=== PATIENT | male | born 1955 | race Caucasian/White ===

== ENCOUNTER 2022-05-11 23:55 | Outpatient (REF) | payer MEDICARE, MEDICAID, SELFPAY ==
[2022-05-12 02:18] LABS: Abs Immature Grans 0.02 10^3/uL (0.0-0.06); Absolute Basophil Count 0.04 10^3/uL (0.0-0.2); Absolute Eosinophil Count 0.27 10^3/uL (0.0-0.7); Absolute Lymphocyte Count 0.95 10^3/uL (1.2-3.4); Absolute Monocyte Count 0.75 10^3/uL (0.1-0.8); Absolute Neutrophil Count 4.17 10^3/uL (1.2-6.7); Basophils % 0.6; Eosinophils % 4.4; HCT 51.7 % (40.0-50.0); HGB 14.9 g/dL (13.5-17.5); Immature Grans % 0.3; Lymphocytes % 15.3; MCH 28.3 pg (27.0-33.0); MCHC 28.8 % (32.0-36.0); MCV 98 fL (80-95); Monocytes % 12.1; Neutrophils % 67.3; Platelet Count 253 10^3/uL (130-400); RBC 5.26 10^6/uL (4.36-5.78); RDW 16.5 % (11.8-14.1)
[2022-05-12 02:51] LABS: ALT 20 U/L (16-63); AST 23 U/L (15-37); Albumin 3.1 g/dL (3.4-5.0); Alkaline Phosphatase 78 U/L (46-116); Anion Gap 5.6 mmol/L (3-11); BUN 22 mg/dL (7-18); Bilirubin, Total 0.4 mg/dL (0.2-1.0); CO2 33.4 mmol/L (21.0-32.0); CREATININE 1.3 mg/dL (0.70-1.30); Calcium 9.5 mg/dL (8.5-10.1); Chloride 106 mmol/L (98-107); Estimated GFR 60.59 (mL/min/1.73m2); Glucose 96 mg/dL (74-106); Potassium 4.2 mmol/L (3.5-5.1); Sodium 145 mmol/L (136-145); TSH (W/Ref FT4) 3.73 uIU/mL (0.36-3.74); Total Protein 7.1 g/dL (6.4-8.2); Vitamin B12 550 pg/mL (193-986)
[2022-05-12 02:53] LABS: Folate > 20.0 ng/mL (8.6-20.0)
[2022-05-12 19:56] LABS: FSH 4.8 mIU/mL (1.4-18.1)
== END 2022-05-11 23:56 | disposition home or self-care (01) ==
LOC: NCHCN 23:55
PROVIDERS: Visit Provider Family Medicine
DX: I10 Essential (primary) hypertension (principal); J44.9 Chronic obstructive pulmonary disease, unspecified; R41.3 Other amnesia; R91.1 Solitary pulmonary nodule; Z00.00 Encounter for general adult medical examination without abnormal findings
CPT/HCPCS: 80053; 82607; 82746; 83001; 84443; 85025

== ENCOUNTER → 2022-06-02 02:08 | Outpatient (CLI) | payer MEDICARE, MEDICAID, SELFPAY ==
--- NOTE | 2022-06-02 09:15 | DI.CT_ITS ---
Exam(s) CT CHEST WO EXAM: CT CHEST WO CLINICAL HISTORY: PULMONARY NODULE, R91.1. TECHNIQUE: Imaging protocol: Axial computed tomography images were obtained and coronal and sagittal reformatted images were created and reviewed. COMPARISON: CT CT ANGIO CHEST PE PROTOCOL from 02/09/2022 FINDINGS: The examination is limited due to patient motion artifact. Tracheobronchial tree: Patent where visualized. The right lower lobe mucous plugging has resolved. T he airways are clear. Pulmonary parenchyma: There is a stable 1.2 x 1 cm nodule in the right mid lung. No new pulmonary no dules are seen. The scarring in the right lung base has spin stable. No focal consolidating infiltr ates are seen. Marked centrilobular emphysema is present. Mediastinum and Olivia: No dominant adenopathy or fluid collection. The esophagus is unremarkable. Thyroid gland: Unremarkable. Pleura: No effusion or pneumothorax. Heart: The heart is not dilated. Coronary artery calcifications are present. No pericardial effusion. Aorta: Thoracic aorta non-dilated. Atherosclerosis is present. Upper abdomen: Layering debris is seen within the gallbladder which may represent gallstones. Lymph nodes: Within normal limits. Soft tissues: There is a 1.5 x 5.8 cm lipoma along the left lateral chest wall. Bones:Within normal limits for the patient's age. IMPRESSION: 1. Stable pulmonary nodule in the right mid lung. 2. Resolution of the right lower lobe mucous plugging. 3. Marked centrilobular emphysema. RADIATION DOSE DELIVERED: Total DLP Total DLP DATA REPOSITORY: All CT scans at this facility are submitted to the National Radiology Data Registry (NRDR) Dose Index Registry (DIR) with the [employer] (A[employer]). RADIATION OPTIMIZATION: All CT scans at this facility use at least one of these dose optimization te chniques: automated exposure control; mA and/or kV adjustment per patient size (includes targeted exa ms where dose is matched to clinical indication); or iterative reconstruction.
== END ==
PROVIDERS: PCP Family Medicine; Visit Provider Family Medicine
DX: R91.1 Solitary pulmonary nodule (principal); J43.2 Centrilobular emphysema
CPT/HCPCS: 71250

== ENCOUNTER → 2022-07-30 10:28 | Outpatient (BNVA) | payer MEDICARE, MEDICAID, SELFPAY | PROVIDERS: PCP Family Medicine; Referring Provider Family Medicine; Visit Provider Psychiatry & Neurology Neurology | DX: R27.0 Ataxia, unspecified (principal); K74.60 Unspecified cirrhosis of liver; R63.4 Abnormal weight loss; R41.3 Other amnesia; R29.6 Repeated falls | CPT/HCPCS: 99205 ==

== ENCOUNTER 2022-08-13 01:55 | Outpatient (CLI) | payer MEDICARE, MEDICAID, SELFPAY ==
--- NOTE | 2022-08-13 07:15 | DI.CT_ITS ---
Exam(s) CT HEAD WO EXAM: CT HEAD WO CLINICAL HISTORY: new ataxia,r27.0. TECHNIQUE: Imaging Protocol: Axial computed tomography images with coronal and sagittal reformatted images were created and reviewed COMPARISON: No exams were available for comparison FINDINGS: Ventricles and Extra axial spaces: Normal in size and morphology for the patient's age. Hemorrhage: None. Cerebral parenchyma: Normal. Midline shift: None. Brainstem/Cerebellum: Normal. Calvarium: Normal. Visualized Paranasal sinuses/Mastoids: Clear. Soft Tissues: Unremarkable. IMPRESSION: No acute intracranial process. RADIATION DOSE DELIVERED: 722.31mGy.cm Total DLP DATA REPOSITORY: All CT scans at this facility are submitted to the National Radiology Data Registry (NRDR) Dose Index Registry (DIR) with the [employer] (ACR). RADIATION OPTIMIZATION: All CT scans at this facility use at least one of these dose optimization te chniques: automated exposure control; mA and/or kV adjustment per patient size (includes targeted exa ms where dose is matched to clinical indication); or iterative reconstruction.
== END 2022-08-13 02:15 ==
LOC: DI 01:55
PROVIDERS: PCP Family Medicine; Visit Provider Psychiatry & Neurology Neurology
DX: R27.0 Ataxia, unspecified (principal)
CPT/HCPCS: 36415; 82390; 82525; 85652; 70450; 84165; 84425; 84446; 86038

== ENCOUNTER 2022-08-13 04:14 | Outpatient (CLI) | payer MEDICARE, MEDICAID, SELFPAY ==
[2022-08-13 09:50] LABS: ESR 3 mm/hr (0-20)
[2022-08-14 12:57] LABS: Albumin 58.7 % (55.8-66.1); Albumin g/dL 3.6 g/dL (3.6-5.2); Total Protein 6.2 g/dL (6.3-8.2)
[2022-08-14 14:16] LABS: ANA Interpretation Negative (Negative)
[2022-08-14 21:51] LABS: Copper, Serum 136 mcg/dL (73-129)
[2022-08-15 12:07] LABS: Vitamin E, Serum 18.7 mg/L (5.5 - 17.0)
[2022-08-16 00:59] LABS: Thiamine (Vitamin B1), WB 242 nmol/L (70-180)
== END 2022-08-13 04:15 | disposition home or self-care (01) ==
LOC: LBO 04:20
PROVIDERS: PCP Family Medicine; Visit Provider Psychiatry & Neurology Neurology
DX: K74.60 Unspecified cirrhosis of liver (principal); R27.0 Ataxia, unspecified; R63.4 Abnormal weight loss; G62.9 Polyneuropathy, unspecified
CPT/HCPCS: 36415; 82390; 82525; 85652; 84165; 84425; 84446; 86038

== ENCOUNTER 2022-09-03 10:21 | Outpatient (REF) | payer MEDICARE, MEDICAID, SELFPAY ==
[2022-09-07 10:43] LABS: Copper 24 Hr, U 9 mcg/24 h (9-71); Urine Volume 600 mL
== END 2022-09-03 10:22 | disposition home or self-care (01) ==
LOC: LBN 10:21
PROVIDERS: PCP Family Medicine; Visit Provider Psychiatry & Neurology Neurology
DX: K74.60 Unspecified cirrhosis of liver (principal)
CPT/HCPCS: 81050; 82525

== ENCOUNTER 2022-09-24 01:17 | Outpatient (CLI) | payer MEDICARE, MEDICAID, SELFPAY ==
--- NOTE | 2022-09-24 06:30 | DI.MRI_ITS ---
Exam(s) MR BRAIN WO EXAM: MR BRAIN WO CLINICAL HISTORY: ataxia,frequent falls,r29.6,r27.0 TECHNIQUE: Multiplanar multisequence MRI of the brain was performed. COMPARISON: CT CT HEAD WO from 08/13/2022 FINDINGS: The exam is somewhat limited by motion. Patient had difficult time completing the exam. VENTRICLES AND EXTRA AXIAL SPACES: Normal in size and morphology for the patient's age. MIDLINE SHIFT: None. CEREBRAL PARENCHYMA: No focus of restricted diffusion to suggest acute infarct. No space-occupying le brandon identified. Multiple patchy densities bilaterally in the white matter of the cerebral hemisphe res likely reflecting microvascular changes. HEMORRHAGE: None. BRAINSTEM/CEREBELLUM: Normal. VISUALIZED PARANASAL SINUSES/MASTOIDS:Clear. [place]: Normal flow void. PITUITARY GLAND: Unremarkable. ORBITS: Unremarkable. IMPRESSION: Microvascular changes in the white matter. No acute abnormality. DATA REPOSITORY:
== END 2022-09-24 01:37 ==
LOC: DI 01:17
PROVIDERS: PCP Family Medicine; Visit Provider Psychiatry & Neurology Neurology
DX: R29.6 Repeated falls (principal); R27.0 Ataxia, unspecified; I67.89 Other cerebrovascular disease
CPT/HCPCS: 70551

== ENCOUNTER → 2022-10-01 11:33 | Outpatient (BNVA) | payer MEDICARE, MEDICAID, SELFPAY | PROVIDERS: PCP Family Medicine; Referring Provider Family Medicine; Visit Provider Surgery | DX: I73.9 Peripheral vascular disease, unspecified (principal) | CPT/HCPCS: 93922 ==

== ENCOUNTER → 2023-01-07 14:20 | Outpatient (BNVA) | payer MEDICARE, MEDICAID, SELFPAY | PROVIDERS: PCP Family Medicine; Referring Provider Family Medicine; Visit Provider Psychiatry & Neurology Neurology | DX: R27.0 Ataxia, unspecified (principal); R63.4 Abnormal weight loss; R41.3 Other amnesia; R29.6 Repeated falls; I73.9 Peripheral vascular disease, unspecified | CPT/HCPCS: 99213 ==

== ENCOUNTER → 2023-01-28 10:46 | Outpatient (BNVA) | payer MEDICARE, MEDICAID, SELFPAY | PROVIDERS: PCP Family Medicine; Referring Provider Family Medicine; Visit Provider Physical Therapy Assistant | DX: Z12.11 Encounter for screening for malignant neoplasm of colon (principal); Z86.010 Personal history of colon polyps ==

== ENCOUNTER 2023-02-04 10:54 | Day surgery (SDC) | payer MEDICARE, MEDICAID, SELFPAY ==
[2023-02-04 11:00] VITALS: BP 168/100; PULSE 97; RESP 18; TEMP 36.2; O2SAT 92
[2023-02-04] MEDS: Lactated Ringers 1,000 ML 80 ML IV (11:27)
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
--- NOTE | 2023-02-04 12:08 | BOWEL_PTH ---
PATIENT: Kris Cesar LOC: [facility] U#:[id number] AGE/SX: 67/M ROOM: RE02/04/[address]: Gilda Coello : 1955 BED: DIS: 02/04/2023 SPEC #: [id number] RECD: 02/04/23 15:36 STATUS: LUC REQ #: [id number] COLTON: 02/04/23 12:[address]: Gilda Coello DEPT: Surgical Specimen RECD BY: Avelina Henriquez ENTERED: 02/04/23 15:36 SP TYPE: Bowel OTHR DR: Zuhair Yip Tissues: 1 - BIOPSY BOWEL 2 - BIOPSY BOWEL Procedures: GROSS AND MICRO LEVEL 4 Comments: [id number]
[2023-02-04 12:24] VITALS: BP 125/81; PULSE 79; RESP 16; TEMP 36.5; O2SAT 97
[2023-02-04 12:54] VITALS: BP 115/80; PULSE 78; RESP 16; TEMP 36.6; O2SAT 94
--- NOTE | 2023-02-04 20:34 | W.COLOREPORT ---
Date of service: 02/04/23 Time of Service: 12:30 Colonoscopy Report Date of procedure: 02/04/23 Pre-op diagnosis general: Villous adenoma Post-op diagnosis procedure note: same Surgeon: Gilda Coello Anesthesia Type: General:No Airway Estimated blood loss (mL): 1 Pathology: other Complications: None Disposition: same day Prep: Miralax/Dulcolax Retraction Time: 12 Procedure Description: After informed consent was obtained the patient was taken to the procedure room and placed in a left decubitous position. Monitors were applied and a time out was done. The patients name, date of , procedure, allergies to medications and metal in their body was reviewed. The patient was then sedated. Once sedated and comfortable a rectal exam was done. External exam was normal. Internal exam revealed a normal sphincter tone and no palpable masses. The prostate normal. The scope was then introduced and retrofelexed. No internal hemorrhoids were identified. The scope was then advanced to the cecum without difficulty. The TI and appendiceal orifice were identified. The prep was BBPS 2 in all segments for total of 6. The scope was then slowly retracted over 12 minutes back into the rectum. Polyps were removed at he had a 0.75 cm pedunculated polyp at 70 cm. This is removed with a cold snare. He had a 5 mm flat polyp at 80 cm. This is removed with a cold biting forcep. All specimen is retrieved and no bleeding is noted. There is no AVMs or diverticula visualized today. The mucosa is pink and healthy with a normal vascular pattern. The scope was removed and the patient was woken up and taken back to Same day surgery in stable condition. The patient tolerated the procedure well and there were no immediate complications. Follow up: The patient should follow up in 3-5 years unless they develop changes in bowel habits or other new gastrointestinal complaints.
[2023-02-05 04:28] VITALS: BMI 18.7
== END 2023-02-04 13:07 | disposition home or self-care (01) ==
LOC: SUR 10:55
PROVIDERS: PCP Family Medicine; Visit Provider Surgery
PROC: 0DJD8ZZ Inspection of Lower Intestinal Tract, Via Natural or Artificial Opening Endoscopic (ICD-10-PCS; CPT 45378; principal; 2023-02-04 11:30)
DX: Z12.11 Encounter for screening for malignant neoplasm of colon (principal); Z86.010 Personal history of colon polyps; D12.4 Benign neoplasm of descending colon
CPT/HCPCS: 45385; 45380; 88305; J2001